=== PATIENT | female | born 1935 | race Caucasian/White ===

== ENCOUNTER 2017-04-01 14:14 | Emergency (ER) | payer MEDICARE ==
--- NOTE | 2017-04-01 16:29 | CT ---
CT BRAIN NONCONTRAST: 04/01/17 HISTORY: Status post fall: head trauma. FINDINGS: There is no midline shift or any other mass effect. There is no evidence of acute intracranial hemo rrhage, large cortical infarct, obstructive hydrocephalus, or extraaxial fluid collection. The calv arium is intact. There is diffuse parenchymal volume loss. There are low attenuation areas in the white matter. 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 There is a hematoma in the left fronta l scalp which contains numerous bubbles of gas, which indicates laceration. IMPRESSION: 1) No acute intracranial findings. 2) Involutional changes and severe chronic ischemic white matter changes. 3) Large left paramedian frontal scalp soft tissue hematoma and laceration. juli lowery POS: [facility]
--- NOTE | 2017-04-01 16:46 | CT ---
CT MAXILLOFACIAL NONCONTRAST: 04/01/17 HISTORY: 81-year-old female status post acute facial trauma from fall. Patient is on anticoagulation medicati on therapy. FINDINGS: There is a large left frontal scalp hematoma. It contains multiple bubbles of gas, indicating lacera tion. There is no fracture. No dislocation of the TMJs. There is mild partial opacification of the r ight sphenoid air cell. The rest of the paranasal sinuses are clear. No intraorbital edema, gas or h ematoma. IMPRESSION: 1. Large, acute, traumatic left frontal scalp hematoma and laceration. 2. No facial fracture. POS: [facility]
--- NOTE | 2017-04-01 18:10 | RAD ---
RADIOGRAPH RIGHT HAND 3 VIEWS: 04/01/17 HISTORY: 81-year-old female status post acute traumatic injury to the second and third digits from fall. FINDINGS: There is diffuse osteopenia. No displaced fracture is identified. No dislocation. 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 Moderate osteoarthrosis of the first IP. Mild osteoarthrosis at other joints. IMPRESSION: 1. No acute fracture identified. 2. 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 POS: [facility]
== END 2017-04-01 16:00 | disposition home or self-care (01) ==
LOC: NAV ERS 14:14
DX: S00.83XA Contusion of other part of head, initial encounter (principal); S60.221A Contusion of right hand, initial encounter; I10 Essential (primary) hypertension; I48.91 Unspecified atrial fibrillation; Z79.01 Long term (current) use of anticoagulants; Z79.899 Other long term (current) drug therapy; W01.198A Fall on same level from slipping, tripping and stumbling with subsequent striking against other object, initial encounter
CPT/HCPCS: 70450; 70486; 93005; 94760; G0390

== ENCOUNTER 2022-09-18 14:14 | Emergency (ER) | payer OTHER, MEDICAID ==
[~2022-09-18 14:14] MED LIST: Iopamidol 370 76% 100 ML VIAL ONE
[2022-09-18 14:35] LABS: #Eosinphils 0.2 thou/uL (0.0-0.7); #Lymphocytes 1.5 thou/uL (1.20-3.40); #Monocytes 0.6 thou/uL (0.11-0.59); #Neutrophils 7.6 thou/uL (1.40-6.50); %Basophils 0.4 % (0.0-1.0); %Eosinophils 2.2 % (0.0-10.0); %Monocytes 6.3 % (0.0-10.0); %Neutrophils 76.2 % (42.0-75.0); Hemoglobin 9.9 g/dL (12.0-16.0); Mean Corpuscular HGB CONC 32.4 g/dL (32.0-36.0); Mean Corpuscular Hemoglobin 31.2 pg (27.0-31.0); Mean Corpuscular Volume 96.3 fl (78.0-98.0); Mean Platelet Volume 6.1 fL (7.4-10.4); Platelet Count 446 10x3/uL (130-400); RBC Distribution Width 12.6 % (11.5-14.5); Red Blood Cell (RBC) Count 3.18 mill/uL (4.20-5.40); White Blood Cell (WBC) Count 9.9 10x3/uL (4.8-10.8)
[2022-09-18 14:59] LABS: ALT (SGPT) 46 U/L (8-55); AST (SGOT) 29 U/L (5-34); Albumin 3.4 g/dL (3.4-4.8); Alkaline Phosphatase 140 U/L (40-110); Anion Gap 13 mmol/L (10-20); BUN (Urea Nitrogen) 12 mg/dL (9.8-20.1); Bilirubin, Total 0.8 mg/dL (0.2-1.2); Calc. Creatinine Clearance 0 mL/min (70-130); Calcium 10.8 mg/dL (7.8-10.44); Carbon Dioxide 29 mmol/L (23-31); Chloride 97 mmol/L (98-107); Estimated GFR 42; Globulin 3.3 g/dL (2.4-3.5); Glucose 193 mg/dL (83-110); Potassium 4.1 mmol/L (3.5-5.1); Protein, Total 6.7 g/dL (5.8-8.1); Sodium 135 mmol/L (136-145)
[2022-09-18 16:00] LABS: Bilirubin Negative (Negative); Blood, Urine Negative (Negative); Clarity Clear (Clear); Glucose, Urine (Dipstick) Negative (Negative); Ketone, Urine Negative (Negative); Leukocyte Negative (Negative); Nitrite Negative (Negative); Protein, Urine (Dipstick) Negative (Neg-Trace); Specific Gravity, Urine 1.015 (1.005-1.030); Urobilinogen 0.2 mg/dL (Less than 2); pH, Urine 6.5 (5.0-9.0)
[2022-09-18] MEDS ORDERED: cefTRIAXone\\ROCEPHIN 1 GM VIAL ONE (17:23)
[2022-09-18] MEDS ORDERED: Sodium Chloride 0.9% 100 ML ONE (17:23)
[2022-09-18] MEDS ORDERED: Atorvastatin Calcium 40 MG TAB PO SCH (17:45)
== END 2022-09-18 18:36 | disposition short-term general hospital (02) ==
LOC: NAV ERS 14:14
DX: I48.91 Unspecified atrial fibrillation (principal); R07.2 Precordial pain; D64.9 Anemia, unspecified; J18.9 Pneumonia, unspecified organism; R41.3 Other amnesia; I11.0 Hypertensive heart disease with heart failure; I50.9 Heart failure, unspecified; Z79.899 Other long term (current) drug therapy; Z79.82 Long term (current) use of aspirin
CPT/HCPCS: 36415; 51701; 71045; 71275; 80053; 81003; 83605; 83880; 84484; 85025; 85379; 93005; 96365; J0696; J3490; Q9967

== ENCOUNTER 2023-01-04 09:50 | Emergency (ER) | payer MEDICARE, MEDICAID ==
[2023-01-04 10:30] LABS: #Eosinphils 0.2 thou/uL (0.0-0.7); #Lymphocytes 1.5 thou/uL (1.20-3.40); #Monocytes 0.6 thou/uL (0.11-0.59); #Neutrophils 4.4 thou/uL (1.40-6.50); %Basophils 0.6 % (0.0-1.0); %Eosinophils 3.1 % (0.0-10.0); %Lymphocytes 21.8 % (21.0-51.0); %Monocytes 9.3 % (0.0-10.0); %Neutrophils 65.3 % (42.0-75.0); Hemoglobin 8.8 g/dL (12.0-16.0); Mean Corpuscular HGB CONC 31.7 g/dL (32.0-36.0); Mean Corpuscular Hemoglobin 28.5 pg (27.0-31.0); Mean Corpuscular Volume 90.2 fl (78.0-98.0); Mean Platelet Volume 6.4 fL (7.4-10.4); Platelet Count 215 10x3/uL (130-400); RBC Distribution Width 13.7 % (11.5-14.5); Red Blood Cell (RBC) Count 3.07 mill/uL (4.20-5.40); White Blood Cell (WBC) Count 6.7 10x3/uL (4.8-10.8)
[2023-01-04 10:45] LABS: ALT (SGPT) 13 U/L (8-55); AST (SGOT) 16 U/L (5-34); Albumin 3.9 g/dL (3.4-4.8); Alkaline Phosphatase 132 U/L (40-110); Anion Gap 14 mmol/L (10-20); BUN (Urea Nitrogen) 13 mg/dL (9.8-20.1); Bilirubin, Total 0.4 mg/dL (0.2-1.2); Calc. Creatinine Clearance 0 mL/min (70-130); Calcium 10.5 mg/dL (7.8-10.44); Carbon Dioxide 24 mmol/L (23-31); Chloride 104 mmol/L (98-107); Estimated GFR 48; Globulin 2.9 g/dL (2.4-3.5); Glucose 162 mg/dL (83-110); Lipase 60 U/L (8-78); Potassium 3.7 mmol/L (3.5-5.1); Protein, Total 6.8 g/dL (5.8-8.1); Sodium 138 mmol/L (136-145)
[2023-01-04] MEDS ORDERED: Aspirin Chewable 81 MG TAB ONE (10:59)
[2023-01-04] MEDS ORDERED: Acetaminophen 500 MG TAB ONE (11:34)
[2023-01-04 13:48] LABS: Troponin I 0.019 ng/mL (< 0.028)
== END 2023-01-04 14:30 | disposition home or self-care (01) ==
LOC: NAV ERS 09:50
DX: D64.9 Anemia, unspecified (principal); I48.91 Unspecified atrial fibrillation; I11.0 Hypertensive heart disease with heart failure; I50.9 Heart failure, unspecified; Z79.899 Other long term (current) drug therapy; Z79.82 Long term (current) use of aspirin
CPT/HCPCS: 71045; 80053; 83690; 84484; 85025